=== PATIENT | male | born 2000 | race Caucasian/White ===

== ENCOUNTER 2020-05-14 09:50 | Inpatient (IN) ==
[2020-05-14] MEDS ORDERED: SODIUM CHLORIDE 0.9% 1000ML 1,000 ML IV STA (10:09)
[2020-05-14] MEDS ORDERED: KETOROLAC TROMETHAMINE 15 MG/ML VIAL IV STA (10:09)
[2020-05-14 10:31] LABS: Basophils # (auto) 0.01 K/uL (0-0.2); Basophils % (auto) 0.2 %; Eosinophils # (auto) 0.05 K/uL (0-0.5); Hematocrit (blood only) 47.8 % (42-52); Hemoglobin 16.7 g/dL (14.0-18.0); Immature Granulocytes # (auto) 0.02 K/uL (0.00-0.02); Immature Granulocytes % (auto) 0.4 %; Lymphocytes # (auto) 1.23 K/uL (1.2-3.4); Lymphocytes % (auto) 24.2 %; Mean Corpuscular Hemoglobin 30.7 pg (25-34); Mean Corpuscular Hgb Conc 34.9 g/dL (32-36); Mean Corpuscular Volume 87.9 fL (80-100); Mean Platelet Volume 11.2 fL (7.4-10.4); Monocytes # (auto) 0.39 K/uL (0.11-0.59); Monocytes % (auto) 7.7 %; Neutrophils # (auto) 3.38 K/uL (1.4-6.5); Neutrophils % (auto) 66.5 %; Platelet Count 211 K/uL (130-400); RDW Coefficient of Variation 12.8 % (11.5-14.5); RDW Standard Deviation 40.4 fL (36.4-46.3); Red Blood Count 5.44 M/uL (4.7-6.1); White Blood Count 5.08 K/uL (4.8-10.8)
[2020-05-14 10:46] LABS: D Dimer < 190 ug/L FEU (0-500); INR 1.2 (0.9-1.1); Prothrombin Time 12.1 Seconds (9.0-12.0)
[2020-05-14 10:51] LABS: BUN Creatinine Ratio 26.7 (10-20); Blood Urea Nitrogen 24 mg/dl (7-18); Calcium 9.2 mg/dl (8.5-10.1); Carbon Dioxide 27 mmol/L (21-32); Chloride 108 mmol/L (98-107); Creatinine Clr Calc Pharmacy 114.3 ml/min; Est GFR (Non-African American) 123.4; Glucose 75 mg/dl (70-99); Lipase 66 U/L (73-393); Potassium 3.8 mmol/L (3.5-5.1); Sodium 139 mmol/L (136-145)
[2020-05-14 10:56] LABS: Troponin I < 0.015 ng/ml (0-0.045)
--- NOTE | 2020-05-14 11:04 | Emergency Department Note ---
History of Present Illness General Chief Complaint: Chest Pain Stated Complaint: CHEST PAIN Time Seen by Provider: 05/14/20 09:57 History of Present Illness Provider Complaint: chest pain Onset (ago): hour(s) 1 Duration: improved Pain Location: right chest Pain Radiation: none Severity: severe Maximum Pain Intensity: 10 Current Pain Intensity: 9 Quality: + sharp Relieved By: + medication-other (Aleve) Exacerbated By: + nothing Context: no recent illness, no recent surgery, no recent travel, no trauma/injury and no history of DVT/PE Associated symptoms: no nausea, no vomiting, no diaphoresis, no dyspnea, no sense of impending doom, no syncope, no palpitations, no fever, no cough and no leg swelling Home Medications Medication Instructions Recorded Confirmed Type desmopressin 0.2 mg PO DAILY 05/14/20 05/14/20 History escitalopram oxalate 5 mg PO DAILY 05/14/20 05/14/20 History naproxen sodium [Aleve] 220 mg PO BID PRN 05/14/20 05/14/20 History Allergies Allergy/AdvReac Type Severity Reaction Status Date / Time No Known Drug Allergies Allergy Verified 05/14/20 10:59 Past Med/Surg History Medical History (Updated 05/14/20 @ 16:36 by Anastacio Nath) Bronchitis Multiple lacerations Pertussis exposure Stomach ulcer Surgical History (Updated 05/14/20 @ 13:27 by Misael Rodriguez) H/O of nasal cauterization S/P tonsillectomy Family History Father Hypertension Grandfather (Maternal) Diabetes Uncle Diabetes maternal Grandmother (Paternal) Colorectal cancer age 27 Other No family history of adverse response to anesthesia No family history of bleeding disorder Denies family history of Pneumothorax Social History (Updated 05/14/20 @ 13:29 by Misael Rodriguez) Smoking Status: Never smoker Second Hand Exposure: No; Hx Alcohol Use: No Hx Substance Use: No Preferred Language: Ukrainian marital status: single Current Living Situation: Family Current Living Situation Comment: lives in [place] current occupational status: employed 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 [employer] Feels Safe at Home: Yes Review of Systems A total of 10 systems reviewed and were otherwise negative Physical Exam Vital Signs Vital Signs - 24 hr 05/14/20 09:53 05/14/20 09:59 05/14/20 10:09 Temperature 36.5 C Temperature Source Temporal Artery Scan Pulse Rate 62 Pulse Rate [Right Finger] Pulse Rate from SpO2 Sensor Pulse Rhythm Regular Pulse Strength Normal Respiratory Rate 18 Respiratory Effort / Characteristics Non-Labored Spontaneous Non-Labored Respiratory Depth Normal Normal Respiratory Pattern Regular Blood Pressure 101/61 Blood Pressure [Right Arm] Blood Pressure Mean 74 Blood Pressure Mean [Right Arm] Blood Pressure Position Sitting Pulse Oximetry 98 Oxygen Delivery Method Room Air Room Air Room Air Oxygen Flow Rate Sepsis Recent Fever Within 48 Hours No Sepsis New/Unexplained Change in Mental Status No Sepsis Action Taken by Nursing No Action Required Pulse Oximetry Post Tiitration 05/14/20 11:32 05/14/20 11:40 05/14/20 11:47 Temperature Temperature Source Pulse Rate 56 L 75 60 Pulse Rate [Right Finger] 78 Pulse Rate from SpO2 Sensor 53 L 63 Pulse Rhythm Pulse Strength Respiratory Rate 14 20 Respiratory Effort / Characteristics Non-Labored Respiratory Depth Normal Respiratory Pattern Blood Pressure 129/76 Blood Pressure [Right Arm] 115/77 Blood Pressure Mean 93 Blood Pressure Mean [Right Arm] 89 Blood Pressure Position Pulse Oximetry 98 96 Oxygen Delivery Method Room Air Oxygen Flow Rate Sepsis Recent Fever Within 48 Hours Sepsis New/Unexplained Change in Mental Status Sepsis Action Taken by Nursing Pulse Oximetry Post Tiitration 05/14/20 11:50 05/14/20 12:00 05/14/20 12:10 Temperature Temperature Source Pulse Rate 50 L 66 90 Pulse Rate [Right Finger] Pulse Rate from SpO2 Sensor 55 L 65 88 Pulse Rhythm Pulse Strength Respiratory Rate Respiratory Effort / Characteristics Respiratory Depth Respiratory Pattern Blood Pressure 132/82 126/80 148/95 H Blood Pressure [Right Arm] Blood Pressure Mean 98 95 112 Blood Pressure Mean [Right Arm] Blood Pressure Position Pulse Oximetry 100 100 100 Oxygen Delivery Method Oxygen Flow Rate Sepsis Recent Fever Within 48 Hours Sepsis New/Unexplained Change in Mental Status Sepsis Action Taken by Nursing Pulse Oximetry Post Tiitration 05/14/20 12:20 05/14/20 12:30 05/14/20 12:31 Temperature Temperature Source Pulse Rate 91 H 73 74 Pulse Rate [Right Finger] Pulse Rate from SpO2 Sensor 89 71 73 Pulse Rhythm Pulse Strength Respiratory Rate Respiratory Effort / Characteristics Respiratory Depth Respiratory Pattern Blood Pressure 135/74 151/79 H Blood Pressure [Right Arm] Blood Pressure Mean 94 103 Blood Pressure Mean [Right Arm] Blood Pressure Position Pulse Oximetry 100 100 100 Oxygen Delivery Method Oxygen Flow Rate Sepsis Recent Fever Within 48 Hours Sepsis New/Unexplained Change in Mental Status Sepsis Action Taken by Nursing Pulse Oximetry Post Tiitration 05/14/20 12:40 05/14/20 12:50 05/14/20 13:00 Temperature Temperature Source Pulse Rate 69 89 85 Pulse Rate [Right Finger] Pulse Rate from SpO2 Sensor 67 91 H 83 Pulse Rhythm Pulse Strength Respiratory Rate Respiratory Effort / Characteristics Respiratory Depth Respiratory Pattern Blood Pressure 151/88 H 150/90 H 108/70 Blood Pressure [Right Arm] Blood Pressure Mean 109 110 82 Blood Pressure Mean [Right Arm] Blood Pressure Position Pulse Oximetry 100 100 100 Oxygen Delivery Method Oxygen Flow Rate Sepsis Recent Fever Within 48 Hours Sepsis New/Unexplained Change in Mental Status Sepsis Action Taken by Nursing Pulse Oximetry Post Tiitration 05/14/20 13:08 05/14/20 13:10 05/14/20 13:20 Temperature Temperature Source Pulse Rate 76 70 Pulse Rate [Right Finger] Pulse Rate from SpO2 Sensor 77 70 Pulse Rhythm Pulse Strength Respiratory Rate Respiratory Effort / Characteristics Respiratory Depth Respiratory Pattern Blood Pressure 128/66 118/64 Blood Pressure [Right Arm] Blood Pressure Mean 86 82 Blood Pressure Mean [Right Arm] Blood Pressure Position Pulse Oximetry 100 100 100 Oxygen Delivery Method Nasal Cannula Oxygen Flow Rate 2 Sepsis Recent Fever Within 48 Hours Sepsis New/Unexplained Change in Mental Status Sepsis Action Taken by Nursing Pulse Oximetry Post Tiitration 100 05/14/20 13:30 05/14/20 13:40 05/14/20 13:50 Temperature Temperature Source Pulse Rate 82 60 65 Pulse Rate [Right Finger] Pulse Rate from SpO2 Sensor 80 58 L 63 Pulse Rhythm Pulse Strength Respiratory Rate Respiratory Effort / Characteristics Respiratory Depth Respiratory Pattern Blood Pressure 132/71 120/65 119/77 Blood Pressure [Right Arm] Blood Pressure Mean 91 83 91 Blood Pressure Mean [Right Arm] Blood Pressure Position Pulse Oximetry 100 99 100 Oxygen Delivery Method Oxygen Flow Rate Sepsis Recent Fever Within 48 Hours Sepsis New/Unexplained Change in Mental Status Sepsis Action Taken by Nursing Pulse Oximetry Post Tiitration 05/14/20 14:00 05/14/20 14:10 05/14/20 14:11 Temperature Temperature Source Pulse Rate 64 82 71 Pulse Rate [Right Finger] Pulse Rate from SpO2 Sensor Pulse Rhythm Pulse Strength Respiratory Rate Respiratory Effort / Characteristics Respiratory Depth Respiratory Pattern Blood Pressure 104/69 126/73 Blood Pressure [Right Arm] Blood Pressure Mean 80 90 Blood Pressure Mean [Right Arm] Blood Pressure Position Pulse Oximetry Oxygen Delivery Method Oxygen Flow Rate Sepsis Recent Fever Within 48 Hours Sepsis New/Unexplained Change in Mental Status Sepsis Action Taken by Nursing Pulse Oximetry Post Tiitration 05/14/20 14:20 05/14/20 14:30 05/14/20 14:40 Temperature Temperature Source Pulse Rate 52 L 71 63 Pulse Rate [Right Finger] Pulse Rate from SpO2 Sensor 65 Pulse Rhythm Pulse Strength Respiratory Rate 16 Respiratory Effort / Characteristics Respiratory Depth Respiratory Pattern Blood Pressure 112/56 L 118/59 L 121/58 L Blood Pressure [Right Arm] Blood Pressure Mean 74 78 79 Blood Pressure Mean [Right Arm] Blood Pressure Position Pulse Oximetry 100 Oxygen Delivery Method Oxygen Flow Rate Sepsis Recent Fever Within 48 Hours Sepsis New/Unexplained Change in Mental Status Sepsis Action Taken by Nursing Pulse Oximetry Post Tiitration 05/14/20 14:44 05/14/20 14:50 05/14/20 15:00 Temperature Temperature Source Pulse Rate 66 65 58 L Pulse Rate [Right Finger] Pulse Rate from SpO2 Sensor 67 66 58 L Pulse Rhythm Pulse Strength Respiratory Rate 16 18 16 Respiratory Effort / Characteristics Respiratory Depth Respiratory Pattern Blood Pressure 121/58 L 121/69 117/77 Blood Pressure [Right Arm] Blood Pressure Mean 79 86 90 Blood Pressure Mean [Right Arm] Blood Pressure Position Pulse Oximetry 99 100 100 Oxygen Delivery Method Oxygen Flow Rate Sepsis Recent Fever Within 48 Hours Sepsis New/Unexplained Change in Mental Status Sepsis Action Taken by Nursing Pulse Oximetry Post Tiitration 05/14/20 15:10 05/14/20 15:20 05/14/20 15:30 Temperature Temperature Source Pulse Rate 86 66 65 Pulse Rate [Right Finger] Pulse Rate from SpO2 Sensor 66 65 Pulse Rhythm Pulse Strength Respiratory Rate 18 18 16 Respiratory Effort / Characteristics Respiratory Depth Respiratory Pattern Blood Pressure 112/63 140/84 123/71 Blood Pressure [Right Arm] Blood Pressure Mean 79 102 88 Blood Pressure Mean [Right Arm] Blood Pressure Position Pulse Oximetry 99 99 99 Oxygen Delivery Method Oxygen Flow Rate Sepsis Recent Fever Within 48 Hours Sepsis New/Unexplained Change in Mental Status Sepsis Action Taken by Nursing Pulse Oximetry Post Tiitration 05/14/20 15:40 05/14/20 15:50 05/14/20 16:00 Temperature Temperature Source Pulse Rate 58 L 56 L 51 L Pulse Rate [Right Finger] Pulse Rate from SpO2 Sensor 58 L 58 L 51 L Pulse Rhythm Pulse Strength Respiratory Rate 16 18 16 Respiratory Effort / Characteristics Respiratory Depth Respiratory Pattern Blood Pressure 116/60 137/74 114/68 Blood Pressure [Right Arm] Blood Pressure Mean 78 95 83 Blood Pressure Mean [Right Arm] Blood Pressure Position Pulse Oximetry 100 99 100 Oxygen Delivery Method Oxygen Flow Rate Sepsis Recent Fever Within 48 Hours Sepsis New/Unexplained Change in Mental Status Sepsis Action Taken by Nursing Pulse Oximetry Post Tiitration 05/14/20 16:10 05/14/20 16:20 Temperature Temperature Source Pulse Rate 53 L 64 Pulse Rate [Right Finger] Pulse Rate from SpO2 Sensor 53 L 66 Pulse Rhythm Pulse Strength Respiratory Rate 18 18 Respiratory Effort / Characteristics Respiratory Depth Respiratory Pattern Blood Pressure 131/74 127/77 Blood Pressure [Right Arm] Blood Pressure Mean 93 93 Blood Pressure Mean [Right Arm] Blood Pressure Position Pulse Oximetry 100 100 Oxygen Delivery Method Oxygen Flow Rate Sepsis Recent Fever Within 48 Hours Sepsis New/Unexplained Change in Mental Status Sepsis Action Taken by Nursing Pulse Oximetry Post Tiitration Physical Exam GENERAL: He is oriented to person, place, and time. He appears well-developed and well-nourished. He does not appear distressed. HENT: Exam performed. - Head: Normocephalic and atraumatic. - Right Ear: External ear normal. No mastoid tenderness. - Left Ear: External ear normal. No mastoid tenderness. - Mouth/Throat: The oropharynx is clear and moist. No trismus in the jaw. No dental abscesses or uvula swelling. No oropharyngeal exudate or tonsillar abscesses. EYES: Conjunctivae and EOM are normal. Pupils are equal, round, and reactive to light. Right eye exhibits no discharge. Left eye exhibits no discharge. No scleral icterus. NECK: Normal range of motion. Neck supple. No JVD present. No spinous process tenderness present. No carotid bruit present. No rigidity. No tracheal deviation and normal range of motion present. No Brudzinski's sign and no Kernig's sign noted. CV: Normal rate, regular rhythm, normal heart sounds and intact distal pulses. There is no peripheral edema. Palpable radial pulses bue. PULM/CHEST: Effort normal and breath sounds normal. No respiratory distress. No stridor. He has no wheezes. He has no rales. - Chest Wall: He exhibits no tenderness. ABD: The abdomen is soft. Bowel sounds are normal. He has no distension. No mass is present. There is no tenderness. There is no rebound, no guarding, no Pemberton's sign and no tenderness at McBurney's point. Rovsig negative. MUSC/SKEL: Normal range of motion. There is no peripheral edema, tenderness or deformity. LYMPH: No cervical adenopathy. NEURO: He is alert and oriented to person, place, and time. He has normal strength. No cranial nerve deficit or sensory deficit. Coordination and gait normal. GCS eye subscore is 4. GCS verbal subscore is 5. GCS motor subscore is 6. Cerebellar tests wnl. SKIN: Skin is warm and dry. He is not diaphoretic. PSYCH: He has a normal mood and affect. Behavior is normal. Judgment and thought content normal. Procedures Chest Tube Chest Tube 1: Chest Tube Location: right and mid axillary line Chest Tube Prep: Yes betadine prep and sterile drapes applied Local Anesthetic: lidocaine 1% and with epi Amount of anesthesia used (mL): 10 Incision Made With: #10 blade Post Procedure: sterile dressing applied Tube Drainage: none Post Procedure CXR?: Yes Patient Tolerated Procedure: Yes Complications: tube not draining Progress: thoravent placed but appeared to be kinked on cxr and red plunger was not ocilating Chest Tube 2: Chest Tube Location: right and mid axillary line Post Procedure CXR?: Yes Patient Tolerated Procedure: Yes Progress: thoravent placed through initial incision after first thoravent removed. post procedure red plunger oscilating cxr at 1212 showed a almost completely resolved ptx Course Course 09: The patient was evaluated in room C2. A complete history and physical exam was performed Cardiac monitoring: An order was placed for continuous cardiac monitoring. The monitor shows a rate of 60 with sinus rhythm 1220: Vital signs stable. Patient was found to have a right-sided pneumothorax on chest x-ray. Nursing informed me. Clinically no element of tension as patient is not having any JVD, hypotension, and his trachea is midline. Patient was moved to resuscitation bay. Thora vent was placed. See procedure note. First Thoravent had kinked and stopped oscillating, chest x-ray showed no improvement of the pneumothorax and then a second Thoravent was replaced. After the second throavent was placed, the red plunger at the top was oscillating in the chest x-ray did show significant improvement of the pneumothorax. Patient will be admitted to the [facility]ist team. Dr. Rodriguez notified Administered Medications Nicotine (Nicotine 14 Mg/24 Hr Patch) 14 mg TD QAM TEVIN Stop: 06/13/20 15:24 Last Admin: 05/14/20 16:19 Dose: 14 mg Documented by: [id number] Discontinued Medications Fentanyl Citrate (Fentanyl Citrate 100 Mcg/2 Ml Vial) Confirm Administered Dose 100 mcg .ROUTE .STK-MED ONE Stop: 05/14/20 11:54 Last Increment: 05/14/20 12:25 Dose: 50 mcg Documented by: [id number] Increment: 05/14/20 12:05 Dose: 50 mcg Documented by: [id number] Fentanyl Citrate (Fentanyl Citrate 100 Mcg/2 Ml Vial) 100 mcg IV NOW STA Stop: 05/14/20 13:26 Last Admin: 05/14/20 13:29 Dose: Not Given Documented by: [id number] Hydromorphone HCl (Hydromorphone Inj 0.5 Mg/0.5 Ml Syr) 0.5 mg IV NOW STA Stop: 05/14/20 12:35 Last Admin: 05/14/20 12:38 Dose: 0.5 mg Documented by: [id number] Sodium Chloride (Nss 1000ml) 1,000 mls @ 999 mls/hr IV .Q1H1M STA Stop: 05/14/20 11:09 Last Infusion: 05/14/20 11:44 Dose: 0 mls/hr Documented by: [id number] Admin: 05/14/20 10:42 Dose: 999 mls/hr Documented by: [id number] Lorazepam (Ativan) 1 mg in 2 mls @ 2 mls/min IV NOW STA Stop: 05/14/20 13:26 Last Admin: 05/14/20 13:29 Dose: Not Given Documented by: [id number] Sodium Chloride (Nss 1000ml) 1,000 mls @ 999 mls/hr IV .Q1H1M ONE Stop: 05/14/20 14:25 Last Infusion: 05/14/20 13:30 Dose: 0 mls/hr Documented by: [id number] Admin: 05/14/20 12:05 Dose: 999 mls/hr Documented by: [id number] Ketorolac Tromethamine (Ketorolac Tromethamine 15 Mg/Ml Vial) 15 mg IV NOW STA Stop: 05/14/20 10:10 Last Admin: 05/14/20 10:42 Dose: 15 mg Documented by: [id number] Lidocaine/Epinephrine (Lidocaine/Epinephrine 1% 20 Ml Vial) Confirm Administered Dose 20 ml .ROUTE .[employer]-MED ONE Stop: 05/14/20 11:53 Last Admin: 05/14/20 12:05 Dose: 20 ml Documented by: [id number] Lorazepam (Lorazepam 2 Mg/4 Ml Vial) Confirm Administered Dose 2 mg .ROUTE .Tunepresto ONE Stop: 05/14/20 11:54 Last Increment: 05/14/20 12:05 Dose: 1 mg Documented by: [id number] Ondansetron HCl (Ondansetron Inj 2 Mg/Ml 2 Ml Vial) Confirm Administered Dose 4 mg .ROUTE .[employer] ONE Stop: 05/14/20 11:54 Last Admin: 05/14/20 11:56 Dose: 4 mg Documented by: [id number] Medical Decision Making Laboratory Data Result diagrams: 05/14/20 10:17 05/14/20 10:17 Labs: Lab Results 05/14/20 05/14/20 05/14/20 Range/Units 10:17 10:17 10:17 WBC 5.08 (4.8-10.8) K/uL RBC 5.44 (4.7-6.1) M/uL Hgb 16.7 (14.0-18.0) g/dL Hct 47.8 (42-52) % MCV 87.9 (80-100) fL MCH 30.7 (25-34) pg MCHC 34.9 (32-36) g/dL RDW Std Deviation 40.4 (36.4-46.3) fL RDW Coeff of Veto 12.8 (11.5-14.5) % Plt Count 211 (130-400) K/uL MPV 11.2 H (7.4-10.4) fL Immature Gran % (Auto) 0.4 % Neut % (Auto) 66.5 % Lymph % (Auto) 24.2 % Warren % (Auto) 7.7 % Eos % (Auto) 1.0 % Baso % (Auto) 0.2 % Neut # (Auto) 3.38 (1.4-6.5) K/uL Lymph # (Auto) 1.23 (1.2-3.4) K/uL Warren # (Auto) 0.39 (0.11-0.59) K/uL Eos # (Auto) 0.05 (0-0.5) K/uL Baso # (Auto) 0.01 (0-0.2) K/uL Immature Gran # (Auto) 0.02 (0.00-0.02) K/uL PT 12.1 H (9.0-12.0) Seconds INR 1.2 H (0.9-1.1) D-Dimer < 190 (0-500) ug/L FEU Sodium 139 (136-145) mmol/L Potassium 3.8 (3.5-5.1) mmol/L Chloride 108 H (98-107) mmol/L Carbon Dioxide 27 (21-32) mmol/L Anion Gap 4.0 (3-11) BUN 24 H (7-18) mg/dl Creatinine 0.90 (0.6-1.4) mg/dl Est Cr Clr Drug Dosing 114.3 ml/min Est GFR ( Amer) 143.0 Est GFR (Non-Af Amer) 123.4 BUN/Creatinine Ratio 26.7 H (10-20) Glucose 75 (70-99) mg/dl Calcium 9.2 (8.5-10.1) mg/dl AST (15-37) U/L ALT (12-78) U/L Troponin I < 0.015 (0-0.045) ng/ml Lipase 66 L (73-393) U/L COVID-19 Eval Order SARS-CoV-2 (PCR) (Negative) Influenza Type A (PCR) (Neg) Influenza Type B (PCR) (Neg) RSV (RT-PCR) (Neg) 05/14/20 05/14/20 05/14/20 Range/Units 10:17 13:25 13:25 WBC (4.8-10.8) K/uL RBC (4.7-6.1) M/uL Hgb (14.0-18.0) g/dL Hct (42-52) % MCV (80-100) fL MCH (25-34) pg MCHC (32-36) g/dL RDW Std Deviation (36.4-46.3) fL RDW Coeff of Veto (11.5-14.5) % Plt Count (130-400) K/uL MPV (7.4-10.4) fL Immature Gran % (Auto) % Neut % (Auto) % Lymph % (Auto) % Warren % (Auto) % Eos % (Auto) % Baso % (Auto) % Neut # (Auto) (1.4-6.5) K/uL Lymph # (Auto) (1.2-3.4) K/uL Warren # (Auto) (0.11-0.59) K/uL Eos # (Auto) (0-0.5) K/uL Baso # (Auto) (0-0.2) K/uL Immature Gran # (Auto) (0.00-0.02) K/uL PT (9.0-12.0) Seconds INR (0.9-1.1) D-Dimer (0-500) ug/L FEU Sodium (136-145) mmol/L Potassium (3.5-5.1) mmol/L Chloride (98-107) mmol/L Carbon Dioxide (21-32) mmol/L Anion Gap (3-11) BUN (7-18) mg/dl Creatinine (0.6-1.4) mg/dl Est Cr Clr Drug Dosing ml/min Est GFR ( Amer) Est GFR (Non-Af Amer) BUN/Creatinine Ratio (10-20) Glucose (70-99) mg/dl Calcium (8.5-10.1) mg/dl AST 28 (15-37) U/L ALT 40 (12-78) U/L Troponin I (0-0.045) ng/ml Lipase (73-393) U/L COVID-19 Eval Order CovFluRsv at [facility] SARS-CoV-2 (PCR) POSITIVE A* (Negative) Influenza Type A (PCR) Negative (Neg) Influenza Type B (PCR) Negative (Neg) RSV (RT-PCR) Negative (Neg) Imaging Data Chest x-ray: Radiologist's impression: Chest X-Ray 05/14/20 09:57 XR chest 2V PA/lateral HISTORY: 19 years-old Male cp acute right-sided chest pain COMPARISON: Chest radiograph 03/04/2014 TECHNIQUE: PA and lateral views of the chest FINDINGS: Large right-sided pneumothorax, pleural separation at the lung apex measuring 6.4 cm and laterally measuring up to 3.8 cm. Mild leftward midline shift. Left lung is clear. No overt pulmonary edema or airspace consolidation. The bones appear normal. 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 Findings were discussed with Dr. Nunn on 05/14/2020 at 11:39 AM ACT 112: Negative or not required by law. The above report was generated using voice recognition software. It may contain grammatical, syntax or spelling errors. Electronically signed by: Julio Martinez M.D. 05/14/2020 11:39 AM Chest X-Ray 05/14/20 12:13 XR chest 1V portable CLINICAL HISTORY: thoravent placement COMPARISON STUDY: Chest radiograph May 24, 2020 at 11:15 AM. FINDINGS: Interval placement of a right pleural catheter is noted. A large right pneumothorax has mildly decreased in size since prior exam. Superior pleural separation measures 5.3 cm. It previously measured 6.4 cm. There is no left pneumothorax. Cardiac size is normal. Apparent mediastinal shift shown on prior exam mildly improved. IMPRESSION: Interval placement of a right pleural catheter. Large right pneumothorax, mildly decreased in size since prior exam. ACT 112: Negative or not required by law. Electronically signed by: Mamadou Simons M.D. 05/14/2020 1:29 PM Chest X-Ray 05/14/20 12:23 XR chest 1V portable HISTORY: Pneumothorax. Follow-up. Reinsertion of chest tube. COMPARISON: Chest 05/14/2020. FINDINGS: There is a right-sided chest tube terminating in the right midlung zone. There is been decrease in size in the right pleural effusion. This now demonstrates a maximal pleural gap of 5 mm. No left-sided pneumothorax. No m ediastinal shift. The heart is normal in size. No focal lung consolidations to suggest pneumonia. No evidence for pulmonary edema. IMPRESSION: Significant decrease in size in the small right pneumothorax. The right-sided chest tube is likely in good position. ACT 112: Negative or not required by law. Electronically signed by: Zachary Law M.D. 05/14/2020 12:35 PM Chest X-Ray 05/14/20 13:52 XR chest 1V portable HISTORY: Chest tube placement COMPARISON: Chest 05/14/2020. FINDINGS: There is again noted a right sided chest tube within the lower h emithorax. Small right pneumothorax is similar in size. This demonstrates a maximal apical pleural gap of 1 cm. No left-sided pneumothorax. The heart is normal in size. No mediastinal shift. No focal lung consolidations. IMPRESSION: No change in the small right pneumothorax. Right-sided chest tube is likely in good position. ACT 112: Negative or not required by law. Electronically signed by: Zachary Law M.D. 05/14/2020 2:18 PM ECG Data Indication: chest pain Rate (beats per minute): 56 Rhythm: normal sinus Findings: no ST depression, no ST elevation and no prolonged QT MDM Narrative 0957: The patient was evaluated in room C2. A complete history and physical exam was performed Cardiac monitoring: An order was placed for continuous cardiac monitoring. The monitor shows a rate of 60 with sinus rhythm 1220: Vital signs stable. Patient was found to have a right-sided pneumothorax on chest x-ray. Nursing informed me. Clinically no element of tension as patient is not having any JVD, hypotension, and his trachea is midline. Patient was moved to resuscitation bay. Thora vent was placed. See procedure note. First Thoravent had kinked and stopped oscillating, chest x-ray showed no improvement of the pneumothorax and then a second Thoravent was replaced. After the second throavent was placed, the red plunger at the top was oscillating in the chest x-ray did show significant improvement of the pneumothorax. Patient will be admitted to the [facility] hospitalist team. Dr. Rodriguez notified Impression & Plan Pneumothorax, COVID-19 Discharge Plan Visit Data Chief Complaint: Chest Pain Stated Complaint: CHEST PAIN ED Provider: Anastacio Nath Discharge Problem: Pneumothorax, COVID-19 Patient Disposition: Admitted As Inpatient Forms Stand Alone Forms: My [facility] Prescriptions Prescriptions: No Action desmopressin 0.2 mg tablet 0.2 mg PO DAILY RF: 0 naproxen sodium [Aleve] 220 mg Tablet 220 mg PO BID PRN (Reason: Fever Or Pain) RF: 0 escitalopram oxalate 5 mg tablet 5 mg PO DAILY RF: 0 Referrals Referrals: [place],Oliverio J, DO [Primary Care Provider] - Discharge Problem: Pneumothorax Qualifiers: Pneumothorax type: spontaneous, primary Qualified Code(s): J93.11 - Primary spontaneous pneumothorax
--- NOTE | 2020-05-14 11:40 | XRay Report ---
XR chest 2V PA/lateral HISTORY: 19 years-old Male cp acute right-sided chest pain COMPARISON: Chest radiograph 03/04/2014 TECHNIQUE: PA and lateral views of the chest FINDINGS: Large right-sided pneumothorax, pleural separation at the lung apex measuring 6.4 cm and laterally me asuring up to 3.8 cm. Mild leftward midline shift. Left lung is clear. No overt pulmonary edema or ai rspace consolidation. The bones appear normal. 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 Findings were discussed with Dr. Nunn on 05/14/2020 at 11:39 AM ACT 112: Negative or not required by law. The above report was generated using voice recognition software. It may contain grammatical, syntax o r spelling errors. Electronically signed by: Julio Martinez M.D. 05/14/2020 11:39 AM
[2020-05-14] MEDS ORDERED: LIDOCAINE/EPINEPHRINE 1% 20 ML VIAL ONE (11:52)
[2020-05-14] MEDS ORDERED: LORazepam 2 MG/4 ML VIAL ONE (11:53)
[2020-05-14] MEDS ORDERED: fentaNYL citrate 100 MCG/2 ML VIAL ONE (11:53)
[2020-05-14] MEDS ORDERED: ONDANSETRON INJ 2 MG/ML 2 ML VIAL ONE (11:53)
[2020-05-14] MEDS ORDERED: HYDROmorphone INJ 0.5 MG/0.5 ML SYR IV STA (12:34)
[2020-05-14] MEDS ORDERED: ONDANSETRON INJ 2 MG/ML 2 ML VIAL IV STA (12:36)
--- NOTE | 2020-05-14 12:37 | XRay Report ---
XR chest 1V portable HISTORY: Pneumothorax. Follow-up. Reinsertion of chest tube. COMPARISON: Chest 05/14/2020. FINDINGS: There is a right-sided chest tube terminating in the right midlung zone. There is been decr ease in size in the right pleural effusion. This now demonstrates a maximal pleural gap of 5 mm. No l eft-sided pneumothorax. No mediastinal shift. The heart is normal in size. No focal lung consolidatio ns to suggest pneumonia. No evidence for pulmonary edema. IMPRESSION: Significant decrease in size in the small right pneumothorax. The right-sided chest tube is likely in good position. ACT 112: Negative or not required by law. Electronically signed by: Zachary Law M.D. 05/14/2020 12:35 PM
--- NOTE | 2020-05-14 12:42 | History & Physical Report ---
Date of Service May 14, 2020 Assessment & Plan (1) Spontaneous pneumothorax: Right sided, s/p chest tube in the ER by ER attending with improved radiographic appearance of pneumothorax and symptoms. [place] [facility] [place] chest tube management. IV morphine prn pain. NS x 1 liter. Had respiratory illness about 2 weeks ago with altered taste/smell - suspicious for COVID. COVID PCR indeed positive. He did have mild cough during that illness but no cough in the last few days. No trauma either. Suspect pneumothorax is due to ruptured bled. Place on telemetry. Allow diet. Continue usual home medications (lexapro, etc). Defer on DVT proph - low risk. Parents updated at bedside. (2) COVID-19: Symptoms started 05/01/2020. Mainly URI symptoms and GI. Transient loss of taste/smell. All symptoms now resolved. No specific Rx needed. Per policy he will be placed in airborne isolation. Literature search shows case reports of spontaneous pneumothorax in the setting of even mild COVID-19 infection with minimal lower respiratory tract symptoms. ([place] Medical Journal) (3) DVT prophylaxis: Given recent COVID-[address] on chemical DVT proph. History of Present Illness Chief Complaint: right sided pleuritic chest pain Primary Care Provider: Oliverio Garrison, 19yo male with history of ADHD - off medications since 2018 - presents with acute onset of right-sided pleuritic chest pain beginning about 0830 this am. He was driving his car to work when the symptoms began. He turned around and went home as the the pain worsened quickly. He also developed shortness of breath. He lives with his parents and they recognized the severity of his symptoms and thus he was brought to [facility] for evaluation. CXR demonstrated a large right-sided pneumothorax with left-quijano shift. A chest tube was placed by the ER attending with improvement in his symptoms and the pneumothorax itself. Patient denies any trauma to the right chest. Denies cough in the last few days. However, about 2 weeks ago, he had a severe respiratory illness lasting 3-4 days. On day 1 of that illness he said he "felt terrible." Was fatigued, had nasal congestion, cough, sore throat, and his sense of taste/smell were altered. He had hot/cold sweats but no fever. He never had COVID testing. Allergies Allergy/AdvReac Type Severity Reaction Status Date / Time No Known Drug Allergies Allergy Verified 05/14/20 10:59 Home Medications Medication Instructions Recorded Confirmed Type desmopressin 0.2 mg PO DAILY 05/14/20 05/14/20 History escitalopram oxalate 5 mg PO DAILY 05/14/20 05/14/20 History naproxen sodium [Aleve] 220 mg PO BID PRN 05/14/20 05/14/20 History Past Med/Surg History Medical History (Updated 05/15/20 @ 06:45 by Misael Rodriguez) Bronchitis Multiple lacerations Pertussis exposure Stomach ulcer Surgical History H/O of nasal cauterization S/P tonsillectomy Family History Father Hypertension Grandfather (Maternal) Diabetes Uncle Diabetes maternal Grandmother (Paternal) Colorectal cancer age 27 Other No family history of adverse response to anesthesia No family history of bleeding disorder Denies family history of Pneumothorax Social History (Updated 05/14/20 @ 13:29 by Misael Rodriguez) Smoking Status: Light tobacco smoker Second Hand Exposure: No; Hx Alcohol Use: No Hx Substance Use: No Preferred Language: Spanish Communication Ability: Effective Fountain Operator Required: No Beliefs That Will Affect Care: None marital status: single Current Living Situation: Parent Current Living Situation Comment: lives in [place] current occupational status: employed 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 Feels Safe at Home: Yes Assistive Devices: None Review of Systems Constitutional: no fever, no chills, no fatigue and no anorexia Eyes: no worsening vision Ear, Nose, Mouth, Throat: as per Subjective / HPI; no nasal congestion and no sore throat Respiratory: as per Subjective / HPI, + dyspnea and + pain on inspiration Cardiovascular: as per Subjective / HPI and + chest pain; no edema Gastrointestinal: no abdominal pain, no nausea, no vomiting (did have 1 episode with his illness 2 weeks ago ) and no diarrhea/loose stools Genitourinary: + problem reported (takes DDAVP) Musculoskeletal: no joint pain Integumentary: no rash Neurologic: no loss of sensation and no headache(s) Psychiatric: no depression Endocrine: no diabetes Hematologic / Lymphatic: no easy bleeding and no easy bruising Allergy / Immunological: no seasonal rhinorrhea Physical Exam Constitutional: + thin; no acute distress and no altered mental status Eyes: PERRL ENMT: Mouth: + oropharynx abnormality (mild erythema ) Throat: + tonsils absent Neck: trachea midline, no thyromegaly Respiratory: no respiratory distress Auscultation: + diminished lung sounds (right base) and + crackles (right base - minimal ); no wheezes Cardiovascular: Rate/Rhythm: regular rate and regular rhythm Heart Sounds: normal S1 and normal S2; no murmur Vessels: posterior tibial pulses present and dorsalis pedis pulses present; no JVD Extremities: no edema Gastrointestinal (Abdomen): normal bowel sounds, soft, nontender, no hepatosplenomegaly Musculoskeletal: Extremities: no clubbing Skin: no rashes, warm and dry multiple tattoos Neurologic: deep tendon reflexes 2+ bilaterally and moves all extremities Psychiatric: A+Ox3, euthymic affect Lymphatic: no cervical lymphadenopathy Results & Data Results & Data ([facility]) Vital Signs (Past 12 Hours) Vital Signs Temp Pulse Pulse Resp BP BP Pulse Ox 05/14/20 12:10 90 148/95 H 100 05/14/20 12:00 66 126/80 100 05/14/20 11:50 50 L 132/82 100 05/14/20 11:47 60 129/76 96 05/14/20 11:40 75 20 05/14/20 11:32 56 L 78 14 115/77 98 05/14/20 09:53 36.5 C 62 18 101/61 98 Laboratory Results Laboratory Results - last 24 hr 05/14/20 05/14/20 05/14/20 10:17 10:17 10:17 WBC 5.08 RBC 5.44 Hgb 16.7 Hct 47.8 MCV 87.9 MCH 30.7 MCHC 34.9 RDW Std Deviation 40.4 RDW Coeff of Veto 12.8 Plt Count 211 MPV 11.2 H Immature Gran % (Auto) 0.4 Neut % (Auto) 66.5 Lymph % (Auto) 24.2 [place] % (Auto) 7.7 Eos % (Auto) 1.0 Baso % (Auto) 0.2 Neut # (Auto) 3.38 Lymph # (Auto) 1.23 [place] # (Auto) 0.39 Eos # (Auto) 0.05 Baso # (Auto) 0.01 Immature Gran # (Auto) 0.02 PT 12.1 H INR 1.2 H D-Dimer < 190 Sodium 139 Potassium 3.8 Chloride 108 H Carbon Dioxide 27 Anion Gap 4.0 BUN 24 H Creatinine 0.90 Est Cr Clr Drug Dosing 114.3 Est GFR ( Amer) 143.0 Est GFR (Non-Af Amer) 123.4 BUN/Creatinine Ratio 26.7 H Glucose 75 Calcium 9.2 Troponin I < 0.015 Lipase 66 L COVID-19 Eval Order SARS-CoV-2 (PCR) Influenza Type A (PCR) Influenza Type B (PCR) RSV (RT-PCR) 05/14/20 05/14/20 13:25 13:25 WBC RBC Hgb Hct MCV MCH MCHC RDW Std Deviation RDW Coeff of Veto Plt Count MPV Immature Gran % (Auto) Neut % (Auto) Lymph % (Auto) [place] % (Auto) Eos % (Auto) Baso % (Auto) Neut # (Auto) Lymph # (Auto) [place] # (Auto) Eos # (Auto) Baso # (Auto) Immature Gran # (Auto) PT INR D-Dimer Sodium Potassium Chloride Carbon Dioxide Anion Gap BUN Creatinine Est Cr Clr Drug Dosing Est GFR ( Amer) Est GFR (Non-Af Amer) BUN/Creatinine Ratio Glucose Calcium Troponin I Lipase COVID-19 Eval Order CovFluRsv at [facility] SARS-CoV-2 (PCR) Pending Influenza Type A (PCR) Pending Influenza Type B (PCR) Pending RSV (RT-PCR) Pending Diagnostic Findings Chest X-Ray 05/14/20 09:57 XR chest 2V PA/lateral HISTORY: 19 years-old Male cp acute right-sided chest pain COMPARISON: Chest radiograph 03/04/2014 TECHNIQUE: PA and lateral views of the chest FINDINGS: Large right-sided pneumothorax, pleural separation at the lung apex measuring 6.4 cm and laterally measuring up to 3.8 cm. Mild leftward midline shift. Left lung is clear. No overt pulmonary edema or airspace consolidation. The bones appear normal. IMPRESSION: Large right-sided pneumothorax with mild leftward midline shift possibly hospital insurance representative of developing tension component. Findings were discussed with Dr. Nunn on 05/14/2020 at 11:39 AM ACT 112: Negative or not required by law. The above report was generated using voice recognition software. It may contain grammatical, syntax or spelling errors. Electronically signed by: Julio Martinez M.D. 05/14/2020 11:39 AM Chest X-Ray 05/14/20 12:13 XR chest 1V portable CLINICAL HISTORY: thoravent placement COMPARISON STUDY: Chest radiograph May 24, 2020 at 11:15 AM. FINDINGS: Interval placement of a right pleural catheter is noted. A large right pneumothorax has mildly decreased in size since prior exam. Superior pleural separation measures 5.3 cm. It previously measured 6.4 cm. There is no left pneumothorax. Cardiac size is normal. Apparent mediastinal shift shown on prior exam mildly improved. IMPRESSION: Interval placement of a right pleural catheter. Large right pneumothorax, mildly decreased in size since prior exam. ACT 112: Negative or not required by law. Electronically signed by: Mamadou Simons M.D. 05/14/2020 1:29 PM Chest X-Ray 05/14/20 12:23 XR chest 1V portable HISTORY: Pneumothorax. Follow-up. Reinsertion of chest tube. COMPARISON: Chest 05/14/2020. FINDINGS: There is a right-sided chest tube terminating in the right midlung zone. There is been decrease in size in the right pleural effusion. This now demonstrates a maximal pleural gap of 5 mm. No left-sided pneumothorax. No mediastinal shift. The heart is normal in size. No focal lung consolidations to suggest pneumonia. No evidence for pulmonary edema. IMPRESSION: Significant decrease in size in the small right pneumothorax. The right-sided chest tube is likely in good position. ACT 112: Negative or not required by law. Electronically signed by: Zachary Law M.D. 05/14/2020 12:35 PM Code Status & VTE Plan Code Status full PG Care Time/CCT Total # of Minutes Spent Total Time Spent with Patient: Total time spent is greater than 50% in coordination of care (as documented) at patient's floor/unit and/or counseling patient: Coding Level of Care Code 04595 Initial Inpt Care Lvl 2 Diagnoses Spontaneous pneumothorax J93.83 COVID-19 U07.1 DVT prophylaxis Z29.9
[2020-05-14] MEDS ORDERED: fentaNYL citrate 100 MCG/2 ML VIAL IV STA (13:25)
[2020-05-14] MEDS ORDERED: LORazepam 1 MG/2 ML VIAL IV STA (13:25)
[2020-05-14] MEDS ORDERED: SODIUM CHLORIDE 0.9% 1000ML 1,000 ML IV ONE (13:25)
--- NOTE | 2020-05-14 13:30 | XRay Report ---
XR chest 1V portable CLINICAL HISTORY: thoravent placement COMPARISON STUDY: Chest radiograph May 24, 2020 at 11:15 AM. FINDINGS: Interval placement of a right pleural catheter is noted. A large right pneumothorax has mil dly decreased in size since prior exam. Superior pleural separation measures 5.3 cm. It previously me asured 6.4 cm. There is no left pneumothorax. Cardiac size is normal. Apparent mediastinal shift show n on prior exam mildly improved. IMPRESSION: Interval placement of a right pleural catheter. Large right pneumothorax, mildly decrease d in size since prior exam. ACT 112: Negative or not required by law. Electronically signed by: Mamadou Simons M.D. 05/14/2020 1:29 PM
--- NOTE | 2020-05-14 14:20 | XRay Report ---
XR chest 1V portable HISTORY: Chest tube placement COMPARISON: Chest 05/14/2020. FINDINGS: There is again noted a right sided chest tube within the lower hemithorax. Small right pneu mothorax is similar in size. This demonstrates a maximal apical pleural gap of 1 cm. No left-sided pn eumothorax. The heart is normal in size. No mediastinal shift. No focal lung consolidations. IMPRESSION: No change in the small right pneumothorax. Right-sided chest tube is likely in good position. ACT 112: Negative or not required by law. Electronically signed by: Zachary Law M.D. 05/14/2020 2:18 PM
[2020-05-14 14:24] LABS: Alanine Aminotransferase 40 U/L (12-78); Aspartate Aminotransferase 28 U/L (15-37)
[2020-05-14 14:33] LABS: Influenza A virus by PCR Negative (Neg); Influenza B virus by PCR Negative (Neg); RSV by PCR Negative (Neg)
[2020-05-14 14:47] LABS: SARS CoV2 RNA(COVID-19) InHosp POSITIVE (Negative)
--- NOTE | 2020-05-14 15:23 | Pulmonary Consultation ---
Date of Consultation May 14, 2020 Assessment & Plan (1) Spontaneous pneumothorax: Impression: 19-year-old male without prior pulmonary history now with spontaneous pneumothorax. He is undergone a Thora vent placement in the emergency room with what appears to be almost complete reexpansion of the pneumothorax. Recommendations: 1. Spontaneous pneumothorax: Continue oxygen to facilitate reabsorption of pleural air. Would keep Thora vent in place. Follow-up chest x-ray in the morning. If the pneumothorax resolves or is stable, can likely be discontinued at that point time and the patient dismissed from the hospital. 2. At this point time the patient could have his initial event without significant sequelae. If this is recurrent (the patient does have an increased risk of recurrent pneumothorax), pleurodesis could be entertained. Will defer CT scan of the chest to look for apical blebs as it would not likely ion exchange operator currently. The patient also does not have signs or symptoms of overt heart Dubay syndrome although that would be on the differential as well. 3. Patient should be advised to avoid changes in barometric pressure to include commercial flights or underwater diving for at least 6 to 8 weeks. Could consider pulmonary function tests in 3 months as an outpatient to assess for tensional occult underlying obstructive lung disease. 4. Pain control per primary service. Thanks for the opportunity participating in the care of this patient. We will continue to follow with you. Feel free to contact us with additional questions History of Present Illness History of Present Illness Asked by hospitalist to assist in management this patient with spontaneous pneumothorax. History is obtained from discussion with the patient and his father at the bedside. Patient is a 19-year-old male without prior history of lung disease. He does vape. He also works in an [employer] shop and does have some exposures to chemicals and solvents. Patient developed acute onset of right-sided chest discomfort today. He presented to the emergency room. Chest x-ray demonstrated 50% pneumothorax. A Thora vent was placed by the ER staff with follow-up chest x-ray demonstrating only a small residual right apical pneumothorax. Patient denies any history of trauma. No coughing wheezing or increased intrathoracic pressures. No prior history of pneumothorax. No family history of pneumothorax. He denies any history of cutaneous lesions such as fibroma follicular adenomas. Allergies Allergy/AdvReac Type Severity Reaction Status Date / Time No Known Drug Allergies Allergy Verified 05/14/20 10:59 Home Medications Medication Instructions Recorded Confirmed Type desmopressin 0.2 mg PO DAILY 05/14/20 05/14/20 History escitalopram oxalate 5 mg PO DAILY 05/14/20 05/14/20 History naproxen sodium [Aleve] 220 mg PO BID PRN 05/14/20 05/14/20 History Patient History Medical History (Updated 05/14/20 @ 13:32 by Misael Rodriguez) Bronchitis Multiple lacerations Pertussis exposure Stomach ulcer Surgical History (Updated 05/14/20 @ 13:27 by Misael Rodriguez) H/O of nasal cauterization S/P tonsillectomy Family History Father Hypertension Grandfather (Maternal) Diabetes Uncle Diabetes maternal Grandmother (Paternal) Colorectal cancer age 27 Other No family history of adverse response to anesthesia No family history of bleeding disorder Denies family history of Pneumothorax Social History (Updated 05/14/20 @ 13:29 by Misael Rodriguez) Smoking Status: Never smoker Second Hand Exposure: No; Hx Alcohol Use: No Hx Substance Use: No Preferred Language: Hungarian marital status: single Current Living Situation: Family Current Living Situation Comment: lives in [place] current occupational status: employed 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 [employer] Feels Safe at Home: Yes Review of Systems Review of Systems: All systems reviewed & are unremarkable except as noted in HPI & below Physical Exam Constitutional: WD/WN, vitals as above Neck: trachea midline, no thyromegaly Respiratory: normal respiratory effort, lungs clear to auscultation Cardiovascular: RRR, no murmur, no edema Gastrointestinal (Abdomen): normal bowel sounds, soft, nontender, no hepatosplenomegaly Musculoskeletal: Extremities: extremities normal to inspection Skin: no rashes, warm and dry Neurologic: Nonfocal exam Lymphatic: no cervical lymphadenopathy Results & Data Results & Data ([facility]) Vital Signs (Past 12 Hours) Vital Signs Temp Pulse Pulse Resp BP BP Pulse Ox 05/14/20 14:30 71 118/59 L 05/14/20 14:20 52 L 112/56 L 05/14/20 14:11 71 126/73 05/14/20 14:10 82 05/14/20 14:00 64 104/69 04/09/21 13:50 65 119/77 100 04/09/21 13:40 60 120/65 99 05/14/20 13:30 82 132/71 100 05/14/20 13:20 70 118/64 100 05/14/20 13:10 76 128/66 100 05/14/20 13:08 100 05/14/20 13:00 85 108/70 100 05/14/20 12:50 89 150/90 H 100 05/14/20 12:40 69 151/88 H 100 05/14/20 12:31 74 151/79 H 100 05/14/20 12:30 73 100 05/14/20 12:20 91 H 135/74 100 05/14/20 12:10 90 148/95 H 100 05/14/20 12:00 66 126/80 100 05/14/20 11:50 50 L 132/82 100 05/14/20 11:47 60 129/76 96 05/14/20 11:40 75 20 05/14/20 11:32 56 L 78 14 115/77 98 05/14/20 09:53 36.5 C 62 18 101/61 98 Laboratory Results 05/14/20 10:17 05/14/20 10:17 Diagnostic Findings Initial chest x-ray reviewed. Pneumothorax noted. Follow-up films with Thora vent in place demonstrated near complete resolution of the pneumothorax with only a small residual apical on the right. PG Care Time/CCT Total # of Minutes Spent Total Time Spent with Patient: Total time spent is greater than 50% in coordination of care (as documented) at patient's floor/unit and/or counseling patient: Coding Level of Care Code 95811 Inpt Consult Level 4 Diagnoses Spontaneous pneumothorax J93.83
[2020-05-14] MEDS: NICOTINE 14 MG/24 HR PATCH TD SCH (16:19)
[2020-05-14] MEDS ORDERED: KETOROLAC 30 MG/ML VIAL IV PRN (17:22)
[2020-05-14] MEDS ORDERED: ONDANSETRON INJ 2 MG/ML 2 ML VIAL IV PRN (17:22)
[2020-05-14] MEDS ORDERED: MoRPHine SULFATE 2 MG/ML CARP IV PRN (17:22)
[2020-05-14] MEDS ORDERED: SODIUM CHLORIDE 0.9% 1000ML 1,000 ML IV SCH (17:22)
[2020-05-14] MEDS: ACETAMINOPHEN 500 MG TAB PO SCH ×2 (17:44→23:45)
--- NOTE | 2020-05-15 07:23 | Electrocardiogram Report ---
Test Reason : Blood Pressure : / mmHG Vent. Rate : 056 BPM Atrial Rate : 056 BPM P-R Int : 110 ms QRS Dur : 098 ms QT Int : 416 ms P-R-T Axes : 000 090 021 degrees QTc Int : 401 ms Sinus bradycardia with short CO Rightward axis Borderline ECG No previous ECGs available Confirmed by Serge Mittal ([id number]) on 05/15/2020 7:23:10 AM Referred By: ED Confirmed By:Serge Mittal
--- NOTE | 2020-05-15 08:09 | XRay Report ---
XR chest 1V portable CLINICAL HISTORY: Pneumothorax. COMPARISON STUDY: Chest radiograph May 13, 2020 at 1:45 PM. FINDINGS: Right pleural catheter is in place. A small right apical pneumothorax with pleural separati on of 9 mm is similar to prior exam. Cardiac size is normal. Mediastinal contours are normal. There i s no evidence for pulmonary edema. IMPRESSION: Right pleural catheter in place. No significant change in a small right apical pneumotho rax. ACT 112: Negative or not required by law. Electronically signed by: Mamadou Simons M.D. 05/15/2020 8:07 AM
--- NOTE | 2020-05-15 08:12 | Hospitalist Progress Note ---
Date of Service May 15, 2020 Assessment & Plan (1) Spontaneous pneumothorax: Right sided, s/p chest tube in the ER by ER attending with improved radiographic appearance of pneumothorax and symptoms. [facility] pulmonary for chest tube management. IV morphine prn pain. NS x 1 liter. Had respiratory illness about 2 weeks ago with altered taste/smell - suspicious for COVID. COVID PCR indeed positive. Suspect pneumothorax is due to ruptured bleb. Continue usual home medications (lexapro, etc). Defer on DVT proph - low risk. (2) COVID-19: Symptoms started 05/01/2020. Mainly URI symptoms and GI. Transient loss of taste/smell. All symptoms now resolved. No specific Rx needed. Per policy he will be placed in airborne isolation. Literature search shows case reports of spontaneous pneumothorax in the setting of even mild COVID-19 infection with minimal lower respiratory tract symptoms. ([place] Medical Journal) (3) DVT prophylaxis: Given recent COVID-[address] on chemical DVT proph. Admission and Anticipated Discharge Date Admission Date: May 14, 2020 Results & Data Results & Data ([facility]) Vital Signs (Past 12 Hours) Vital Signs Temp Pulse Resp BP Pulse Ox 05/15/20 03:25 98.2 F 41 L 16 102/53 L 100 05/14/20 23:03 97.9 F 56 L 18 102/48 L 99 05/14/20 20:20 97.9 F 50 L 18 133/71 99 PG Care Time/CCT Total # of Minutes Spent Total Time Spent with Patient: Total time spent is greater than 50% in coordination of care (as documented) at patient's floor/unit and/or counseling patient: Coding Diagnoses Spontaneous pneumothorax J93.83 COVID-19 U07.1 DVT prophylaxis Z29.9
[2020-05-15] MEDS ORDERED: ESCITALOPRAM OXALATE 10 MG TAB PO SCH (09:00)
[2020-05-15] MEDS ORDERED: DESMOPRESSIN ACETATE 0.1 MG TAB PO SCH (09:00)
[2020-05-15] MEDS: ACETAMINOPHEN 500 MG TAB PO SCH ×2 (09:03→14:23)
[2020-05-15] MEDS: HEPARIN SOD 5,000 UNIT/0.5 ML VIAL SQ SCH ×2 (09:04→14:23)
--- NOTE | 2020-05-15 10:01 | Procedure Note ---
Procedure Note Date of Service May 15, 2020 Procedure: Removal of Thora vent Manager Floor Dr. Anderson Anesthesia none Estimated blood loss none The patient was placed in the right side up decubitus position. The dressing was taken down. At full expiration the Thora vent was removed and a dressing with Vaseline impregnated gauze was applied. This was secured with paper tape. The patient tolerated the procedure well Coding CPT Codes Pulmonary/Thoracic - Pulmonary and Thoracic: 38122 Remove lung catheter ([id number]) [facility] Procedure Codes (Charges) Pulmonary/Thoracic Procedure 1: Pulmonary and Thoracic: 73702 Remove lung catheter
--- NOTE | 2020-05-15 10:05 | Pulmonology Progress Note ---
Date of Service May 15, 2020 Assessment & Plan (1) Spontaneous pneumothorax: Impression: 19-year-old male without prior pulmonary history now with spontaneous pneumothorax. Thora vent placed in the ER with near complete resolution of the pneumothorax. Chest x-ray this morning demonstrated a small stable apical pneumothorax. The event was removed and the patient can be dismissed from the hospital. Recommendations: 1. Spontaneous pneumothorax: Now resolved. Thora vent out. Okay to dismiss the patient from the hospital. Recommend follow-up PA and lateral chest x-ray in 1 to 2 weeks 2. At this point time the patient could have his initial event without significant sequelae. If this is recurrent (the patient does have an increased risk of recurrent pneumothorax), pleurodesis could be entertained. Will defer CT scan of the chest to look for apical blebs as it would not likely interchange agent currently. The patient also does not have signs or symptoms of Ioana Teresa Dubae syndrome although that would be on the differential as well. 3. Patient should be advised to avoid changes in barometric pressure to include commercial flights or underwater diving for at least 6 to 8 weeks. Could consider pulmonary function tests in 3 months as an outpatient to assess for te nsional occult underlying obstructive lung disease. 4. Pt to return to the emergency room for increasing chest pain shortness of breath or cough. We will sign off. Feel free to contact us if we can be of additional assistance Admission and Anticipated Discharge Date Admission Date: May 14, 2020 Subjective Patient seen and examined. EMR reviewed. Patient without complaint. He denies chest pain palpitations shortness of breath. No cough or sputum production. His pain is adequately controlled. He is off oxygen now. Physical Exam Constitutional: WD/WN, vitals as above Neck: trachea midline, no thyromegaly Respiratory: normal respiratory effort, lungs clear to auscultation Cardiovascular: RRR, no murmur, no edema Gastrointestinal (Abdomen): normal bowel sounds, soft, nontender, no hepatosplenomegaly Musculoskeletal: Extremities: extremities normal to inspection Skin: no rashes, warm and dry Lymphatic: no cervical lymphadenopathy Results & Data Results & Data ([facility]) Vital Signs (Past 12 Hours) Vital Signs Temp Pulse Resp BP Pulse Ox 05/15/20 08:20 36.7 C 51 L 16 111/57 L 99 05/15/20 03:25 36.8 C 41 L 16 102/53 L 100 05/14/20 23:03 36.6 C 56 L 18 102/48 L 99 Laboratory Results 05/14/20 10:17 05/14/20 10:17 Diagnostic Findings Chest x-ray from this morning was reviewed. There is a small apical pneumothorax. The lungs are otherwise clear. PG Care Time/CCT Total # of Minutes Spent Total Time Spent with Patient: Total time spent is greater than 50% in coordination of care (as documented) at patient's floor/unit and/or counseling patient: Coding Level of Care Code 55431 Subseq Hosp Care Lvl 2 Diagnoses Spontaneous pneumothorax J93.83 Time Spent (min) 28
[2020-05-15] MEDS: NICOTINE 14 MG/24 HR PATCH TD SCH (10:40)
--- NOTE | 2020-05-15 18:06 | Discharge Summary ---
Date of Service May 15, 2020 Admission HPI Per Admitting Provider 19yo male with history of ADHD - off medications since 2018 - presents with acute onset of right-sided pleuritic chest pain beginning about 0830 this am. He was driving his car to work when the symptoms began. He turned around and went home as the the pain worsened quickly. He also developed shortness of breath. He lives with his parents and they recognized the severity of his symptoms and thus he was brought to [facility] for evaluation. CXR demonstrated a large right-sided pneumothorax with left-quijano shift. A chest tube was placed by the ER attending with improvement in his symptoms and the pneumothorax itself. Patient denies any trauma to the right chest. Denies cough in the last few days. However, about 2 weeks ago, he had a severe respiratory illness lasting 3-4 days. On day 1 of that illness he said he "felt terrible." Was fatigued, had nasal congestion, cough, sore throat, and his sense of taste/smell were altered. He had hot/cold sweats but no fever. He never had COVID testing. Principal Diagnosis spontaneous pneumothorax covid 19 infection Discharge Exam The patient appeared well Vital signs as documented. Lungs are clear to auscultation and appear unlabored Cardiac exam, Rhythm is regular.. No murmurs, rubs or gallops. Discharge Data Allergies Allergy/AdvReac Type Severity Reaction Status Date / Time No Known Drug Allergies Allergy Verified 05/14/20 10:59 Consultations 05/14/20 12:24 ED Decision to Admit Stat 05/14/20 17:22 Consult Pulmonology Routine Hospital Course (1) Spontaneous pneumothorax: Right sided, s/p chest tube in the ER by ER attending with improved radiographic appearance of pneumothorax and symptoms[place] [facility] management. Ct removed post CXR looks good, pulmonary medicine permits discharge recommends outpt CXR in1-2 weeks Had respiratory illness about 2 weeks ago with altered taste/smell - suspicious for COVID. COVID PCR indeed positive. CXR without infiltrates Continue usual home medications (lexapro, etc). (2) COVID-19: Symptoms started 05/01/2020. Mainly URI symptoms and GI. Transient loss of taste/smell. All symptoms now resolved. No specific Rx needed. Literature search shows case reports of spontaneous pneumothorax in the setting of even mild COVID-19 infection with minimal lower respiratory tract symptoms. 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 Could consider pulmonary function tests in 3 months as an outpatient to assess for tensional occult underlying obstructive lung disease. Have out patient repeat cxr in 10-14 days Home Isolation COVID-19 Instructions The following information about Home Isolation is from the CDC Website: https://www.cdc.gov/coronavirus/2019-ncov/hcp/ismpyrwo-miwipqs-wrnerp.html Stay home except to get medical care People who are mildly ill with COVID-19 are able to isolate at home during their illness. You should restrict activities outside your home, except for getting medical care. Do not go to work, school, or public areas. Avoid using public transportation, ride-sharing, or taxis. Separate yourself from other people and animals in your home who have not had Covid 19 infection People: As much as possible, you should stay in a specific room and away from other people in your home. Also, you should use a separate bathroom, if available. Animals: You should restrict contact with pets and other animals while you are sick with COVID-19, just like you would around other people. Although there have not been reports of pets or other animals becoming sick with COVID-19, it is still recommended that people sick with COVID-19 limit contact with animals until more information is known about the virus. When possible, have another member of your household care for your animals while you are sick. If you are sick with COVID-19, avoid contact with your pet, including petting, snuggling, being kissed or licked, and sharing food. If you must care for your pet or be around animals while you are sick, wash your hands before and after you interact with pets and wear a face mask. Call ahead before visiting your doctor If you have a medical appointment, call the healthcare provider and tell them that you have or may have COVID-19. This will help the healthcare providers office take steps to keep other people from getting infected or exposed. Wear a face mask You should wear a face mask when you are around other people (e.g., sharing a room or vehicle) or pets and before you enter a healthcare providers office. If you are not able to wear a face mask (for example, because it causes trouble breathing), then people who live with you should not stay in the same room with you, or they should wear a face mask if they enter your room. Cover your coughs and sneezes Cover your mouth and nose with a tissue when you cough or sneeze. Throw used tissues in a lined trash can. Immediately wash your hands with soap and water for at least 20 seconds or, if soap and water are not available, clean your hands with an alcohol-based hand marketing operations manager that contains at least 60% alcohol. Clean your hands often Wash your hands often with soap and water for at least 20 seconds, especially after blowing your nose, coughing, or sneezing; going to the bathroom; and before eating or preparing food. If soap and water are not readily available, use an alcohol-based hand marketing operations manager with at least 60% alcohol, covering all surfaces of your hands and rubbing them together until they feel dry. Soap and water are the best option if hands are visibly dirty. Avoid touching your eyes, nose, and mouth with unwashed hands. Avoid sharing personal household items You should not share dishes, drinking glasses, cups, eating utensils, towels, or bedding with other people or pets in your home. After using these items, they should be washed thoroughly with soap and water. Clean all high-touch surfaces everyday High touch surfaces include counters, tabletops, doorknobs, bathroom fixtures, toilets, phones, keyboards, tablets, and bedside tables. Also, clean any surfaces that may have blood, stool, or body fluids on them. Use a household cleaning spray or wipe, according to the label instructions. Labels contain instructions for safe and effective use of the cleaning product including precautions you should take when applying the product, such as wearing gloves and making sure you have good ventilation during use of the product. Monitor your symptoms Seek prompt medical attention if your illness is worsening (e.g., difficulty breathing).Beforeseeking care, call your healthcare provider and tell them that you have, or are being evaluated for, COVID-19. Put on a face mask before you enter the facility. These steps will help the healthcare providers office to keep other people in the office or waiting room from getting infected or exposed. Ask your healthcare provider to call the local or state health department. Persons who are placed under active monitoring or facilitated self- monitoring should follow instructions provided by their local health department or occupational health professionals, as appropriate. When working with your local health department check their available hours. If you have a medical emergency and need to call 911, notify the dispatch personnel that you have, or are being evaluated for COVID-19. If possible, put on a face mask before emergency medical services arrive. Discontinuing home isolation Patients with confirmed COVID-19 should remain under home isolation precautions until the risk of secondary transmission to others is thought to be low. The decision to discontinue home isolation precautions should be made on a [id number] basis, in consultation with healthcare providers and state and local health departments. currently it is felt that 11 days after symtpoms first began or testing resulted positive the majority of people are no longer infectious to others. Pending Studies at Discharge: No Stand-Alone Forms: [facility], Smoking Cessation Medications and DC Order Prescriptions: Continued desmopressin 0.2 mg tablet 0.2 mg PO DAILY RF: 0 naproxen sodium [Aleve] 220 mg Tablet 220 mg PO BID PRN (Reason: Fever Or Pain) RF: 0 escitalopram oxalate 5 mg tablet 5 mg PO DAILY RF: 0 Discharge Orders: Discharge Order (Routine); Ordered 05/15/20 Ordered By: Des Sanchez/Other Patient Handouts: ED Pneumothorax, Spontaneous Admission Data Admit Date/Time: 05/14/20 13:20 Attending Provider: Des Matute Admit Provider: Misael Rodriguez Primary Care Provider: Oliverio Garrison Other Providers: Misael Rodriguez ; Jame Anderson Other Interventions: Discharge Summary Assessment (RN) Last Done: 05/15/20 16:31 Coding Level of Care Code D/C Day Management >30 mins Diagnoses Spontaneous pneumothorax J93.83 COVID-19 U07.1
== END 2020-05-15 16:51 | disposition home or self-care (01) | DRG 178 ==
LOC: ED 09:50 → SUATTDRO 13:20 → 2E 13:20